=== PATIENT | female | born 1955 | race Caucasian/White ===

== ENCOUNTER → 2016-11-18 | Outpatient (CLI) | payer OTHER ==
[~2016-11-18] MED LIST: 'PARAFON FORTE500 M1 PO; ALBUTEROL; ALBUTEROL0.09 MG/A2 IH; AMBIEN5 MG PO; AMOXIL500 MG PO; ASPIR 8181 MG PO; ASPIRIN81 M1 PO; ATARAX25 MG PO; ATIVAN0.5 MG PO; ATORVASTATIN CA20 M1 PO; BACTRIM DS 8001 TA1 PO; BEVACIZUMAB 25 MG/ML IV; BIAXIN500 MG PO; CELEXA10 MG PO; CLARITIN10 MG PO; CLINDAMYCIN HC300 MG PO; DAYPRO600 M1 PO; EES400 MG PO; ELIMITE 5%60 GM PO; FLEXERIL10 MG PO; FLEXERIL5 MG PO; FLONASE0.05 MG/AC NS; FLOVENT; FUROSEMIDE20 MG PO; GABAPENTIN300 MG PO; GENTAK3 MG/GM OP; HUMULIN R100 U/ML SC; HYDROCODONE BIT1 T11 PO; HYDRODIURIL25 MG PO; INVOKANA 100 MG PO; INVOKANA300 M1 PO; JANUVIA25 MG PO; LEVOFLOXACIN500 MG PO; LIDEX0.05% T; LOMOTIL 0.025 M1 TA1 PO; LOMOTIL 0.025 M1 TAB PO; LOPRESSOR25 MG PO; LOVAZA1 GM PO; LYRICA100 MG PO; MEDROL DOSEPAK4 MG PO; METFORMIN HCL500 MG PO; METFORMIN1000 MG PO; METOPROLOL SR25 MG PO; MOBIC7.5 MG PO; MORPHINE SULFAT15 M1 PO; MOTRIN800 MG PO; MULTIPLE VITAMI1 T25 PO; MULTIVITAMIN FO1 CAP PO; NAPROSYN500 MG PO; NEURONTIN100 MG PO; NEURONTIN300 MG PO; NEXIUM40 MG PO; NORCO 5-325 TA1 EACH PO; NOVOLIN 70/30 SC; NOVOLOG10 ML IV; NOVOLOG10 ML PO; OMNICEF300 MG PO; PERCOCET 325 MG1 TA2 PO; PHENERGAN W/DM120 ML PO; PHENERGAN25 M1 PO; POTASSIUM CL ER PO; PREDNICOT10 MG PO; PREDNICOT20 MG PO; PREDNISONE10 MG PO; PRILOSEC20 M1 PO; PRILOSEC40 MG PO; PROAIR HFA0.09 MG/AC IH; PROAIR HFA0.09 MG/AC INH; PYRIDIUM200 M1 PO; RESTASIS0.05% OP; ROBITUSSIN AC 110 ML PO; SUDAFED30 MG PO; TRAMADOL HCL50 MG PO; TRILIPIX45 MG PO; VENTOLIN H0.09 MG/AC INH; VIBRAMYCIN100 MG PO; VICODIN 5-3001 EACH PO; VICODIN 5/500 505 MG PO; VITAMIN D33000 UNIT PO; ZANTAC 150150 MG PO; ZETIA10 MG PO; ZITHROMAX Z PA250 MG PO; ZOFRAN ODT4 MG SL; ZOFRAN ODT8 MG PO; ZOFRAN4 MG PO; Zofran4 MG PO; [UNRECOGNIZED DRUG - OTHER] PO
== END | disposition home or self-care (01) ==
LOC: MAMMO 11-11 10:00
DX: N63 Unspecified lump in breast (principal)

== ENCOUNTER → 2017-03-31 | Outpatient (CLI) | payer OTHER ==
[~2017-03-31] MED LIST changes: +LIDEX 0.05% CRE15 GM T
== END | disposition home or self-care (01) ==
LOC: D 10:15
DX: E11.9 Type 2 diabetes mellitus without complications (principal)

== ENCOUNTER 2017-05-21 14:35 | Emergency (ER) | payer OTHER ==
[~2017-05-21] VITALS: Wt 87.1 kg
[2017-05-21 15:09] VITALS: BP 132/63
[2017-05-21 15:31] LABS: BASO % 0.4 % (0.0-1.0); EOS % 0.4 % (1.0-4.0); HEMATOCRIT 41.7 % (37.0-47.0); HEMOGLOBIN 14.4 g/dl (12.0-16.0); IG # 0.1 10*3/uL (0.0-0.1); LYMPH # 1.3 10*3/uL (1.3-4.4); LYMPH % 12.1 % (27.0-41.0); MEAN CELL VOLUME 84.8 fl (81.0-99.0); MEAN CORPUSCULAR HGB 29.3 pg (27.0-31.0); MEAN CORPUSCULAR HGB CONC 34.5 g/dl (33.0-37.0); MEAN PLATELET VOLUME 9.6 fl (9.6-12.3); MONO # 1.2 10*3/uL (0.1-1.0); NEUT % 75.6 % (47.0-73.0); PLATELET COUNT AUTOMATED 261 10*3/uL (130-400); RED BLOOD COUNT 4.92 10*6/uL (4.10-5.10); RED CELL DISTRI WIDTH 13.1 % (0-14.5); WHITE BLOOD COUNT 10.6 10*3/uL (4.8-10.8)
[2017-05-21 15:48] LABS: ALBUMIN 3.4 gm/dl (3.1-4.5); BILIRUBIN, TOTAL 0.7 mg/dl (0.2-1.0); BUN 12 mg/dl (7-24); CARBON DIOXIDE 25 mmol/L (21-32); CHLORIDE 96 mmol/L (98-107); EST GLOM FILT AFRICAN AMERICAN > 60 ml/min; GLUCOSE 205 mg/dL (65-99); POTASSIUM 3.5 mmol/L (3.5-5.1); SGOT/AST 9 IU/L (3-35); SGPT/ALT 15 U/L (12-78); SODIUM 132 mmol/L (136-145); TOTAL PROTEIN 7.6 gm/dL (6.4-8.2)
[2017-05-21 15:49] LABS: ALKALINE PHOSPHATASE 84 U/L (45-117)
[2017-05-21 15:58] LABS: BILIRUBIN 1+ (NEGATIVE); BLOOD TRACE-INTACT (NEGATIVE); CLARITY SL CLOUDY (CLEAR); COLOR YELLOW (YELLOW); GLUCOSE 1+ (NEGATIVE); KETONE TRACE (NEGATIVE); LEUKO ESTERASE NEGATIVE (NEGATIVE); NITRITE POSITIVE (NEGATIVE); PROTEIN 2+ (NEGATIVE); SPECIFIC GRAVITY 1.025 (1.005-1.030)
[2017-05-21 16:06] LABS: URINE REFLEX COMMENT YES (NO)
[2017-05-21 16:07] LABS: MUCOUS 1+
[2017-05-21 16:08] LABS: BACTERIA 3+
[2017-05-21] MEDS ORDERED: LEVOFLOXACIN500 MG PO (16:39)
[2017-05-21] MEDS ORDERED: NAPROSYN500 MG PO (16:39)
== END 2017-05-21 16:51 | disposition home or self-care (01) ==
LOC: ED 14:35
PROVIDERS: Emergency Medicine
DX: J18.1 Lobar pneumonia, unspecified organism (principal); R09.1 Pleurisy; F17.200 Nicotine dependence, unspecified, uncomplicated; Z79.82 Long term (current) use of aspirin; Z79.899 Other long term (current) drug therapy; Z88.0 Allergy status to penicillin; Z88.6 Allergy status to analgesic agent; Z91.012 Allergy to eggs

== ENCOUNTER 2017-07-19 19:27 | Emergency (ER) | payer OTHER ==
[~2017-07-19] VITALS: Ht 165.1 cm; Wt 81.6 kg
[2017-07-19 20:01] VITALS: BP 110/78
[2017-07-19] MEDS ORDERED: LEVOFLOXACIN500 MG PO (22:08)
[2017-07-19] MEDS ORDERED: MEDROL DOSEPAK4 MG PO (22:13)
== END 2017-07-19 22:23 | disposition home or self-care (01) ==
LOC: ED 19:27
DX: H65.93 Unspecified nonsuppurative otitis media, bilateral (principal); J01.00 Acute maxillary sinusitis, unspecified; F17.200 Nicotine dependence, unspecified, uncomplicated; Z88.0 Allergy status to penicillin; Z88.6 Allergy status to analgesic agent; Z91.012 Allergy to eggs; Z79.82 Long term (current) use of aspirin; Z79.899 Other long term (current) drug therapy

== ENCOUNTER 2017-09-05 17:17 | Emergency (ER) | payer OTHER ==
[2017-09-05 17:22] VITALS: BP 120/55
[2017-09-05 17:40] LABS: BASO # 0.1 10*3/uL (0.0-0.1); BASO % 0.6 % (0.0-1.0); EOS # 0.2 10*3/uL (0.0-0.4); EOS % 2.2 % (1.0-4.0); HEMATOCRIT 42.1 % (37.0-47.0); HEMOGLOBIN 14.4 g/dl (12.0-16.0); LYMPH # 2.9 10*3/uL (1.3-4.4); LYMPH % 30.2 % (27.0-41.0); MEAN CELL VOLUME 84.4 fl (81.0-99.0); MEAN CORPUSCULAR HGB 28.9 pg (27.0-31.0); MEAN CORPUSCULAR HGB CONC 34.2 g/dl (33.0-37.0); MEAN PLATELET VOLUME 9.7 fl (9.6-12.3); MONO # 0.7 10*3/uL (0.1-1.0); MONO % 7.5 % (3.0-9.0); NEUT # 5.6 10*3/uL (2.3-7.9); PLATELET COUNT AUTOMATED 295 10*3/uL (130-400); RED BLOOD COUNT 4.99 10*6/uL (4.10-5.10); WHITE BLOOD COUNT 9.5 10*3/uL (4.8-10.8)
[2017-09-05 18:00] LABS: ALBUMIN 3.5 gm/dl (3.1-4.5); ALKALINE PHOSPHATASE 112 U/L (45-117); BUN 16 mg/dl (7-24); CHLORIDE 99 mmol/L (98-107); POTASSIUM 3.8 mmol/L (3.5-5.1); SGOT/AST 14 IU/L (3-35); SGPT/ALT 18 U/L (12-78); SODIUM 135 mmol/L (136-145); TOTAL PROTEIN 7.5 gm/dL (6.4-8.2)
[2017-09-05] MEDS ORDERED: NOVOLOG100 UNIT/1 SQ (18:33)
[2017-09-05] MEDS ORDERED: SEPTDS PO (19:02)
== END 2017-09-05 19:06 | disposition home or self-care (01) ==
LOC: ED 17:17
PROVIDERS: Registered Nurse
DX: J06.9 Acute upper respiratory infection, unspecified (principal); R73.9 Hyperglycemia, unspecified; F17.200 Nicotine dependence, unspecified, uncomplicated; Z88.0 Allergy status to penicillin; Z88.6 Allergy status to analgesic agent; Z91.012 Allergy to eggs; Z79.82 Long term (current) use of aspirin; Z79.899 Other long term (current) drug therapy

== ENCOUNTER 2017-11-12 13:27 | Emergency (ER) | payer OTHER ==
[~2017-11-12] VITALS: Ht 165.1 cm; Wt 86.2 kg
[~2017-11-12 13:27] MED LIST changes: +NOVOLOG100 UNIT/1 SQ; +SEPTDS PO
[2017-11-12 13:31] VITALS: BP 106/71
[2017-11-12] MEDS ORDERED: Bactroban Oint22 GM T (13:54)
== END 2017-11-12 14:27 | disposition home or self-care (01) ==
LOC: ED 13:27
DX: J34.89 Other specified disorders of nose and nasal sinuses (principal); F17.200 Nicotine dependence, unspecified, uncomplicated; Z90.710 Acquired absence of both cervix and uterus; Z98.890 Other specified postprocedural states; Z90.89 Acquired absence of other organs; Z79.82 Long term (current) use of aspirin; Z79.899 Other long term (current) drug therapy; Z88.0 Allergy status to penicillin; Z88.6 Allergy status to analgesic agent; Z91.012 Allergy to eggs

== ENCOUNTER → 2018-03-08 | Outpatient (CLI) | payer OTHER, MEDICAID ==
[~2018-03-08] MED LIST changes: +Bactroban Oint22 GM T
== END | disposition home or self-care (01) ==
LOC: MAMMO 02-24 13:30
DX: N63.20 Unspecified lump in the left breast, unspecified quadrant (principal); R92.8 Other abnormal and inconclusive findings on diagnostic imaging of breast

== ENCOUNTER 2018-03-13 10:34 | Emergency (ER) | payer OTHER, MEDICAID ==
[~2018-03-13] VITALS: Wt 74.8 kg
[2018-03-13] MEDS ORDERED: SEPTDS PO (10:55)
[2018-03-13] MEDS ORDERED: PYRIDIUM100 MG PO (10:55)
[2018-03-13 11:04] LABS: BILIRUBIN NEGATIVE (NEGATIVE); BLOOD 3+ (NEGATIVE); CLARITY SL CLOUDY (CLEAR); COLOR YELLOW (YELLOW); GLUCOSE NEGATIVE (NEGATIVE); KETONE NEGATIVE (NEGATIVE); LEUKO ESTERASE 3+ (NEGATIVE); NITRITE NEGATIVE (NEGATIVE); PH 8.5 (5.0-9.0); UROBILINOGEN 0.2 E.U./dl (0.2-1.0)
[2018-03-13 11:19] LABS: BACTERIA 1+; RBC 21-30 rbc/hpf (0-2); WBC 21-30 wbc/hpf (0-5)
== END 2018-03-13 11:45 | disposition home or self-care (01) ==
LOC: ED 10:34
PROVIDERS: Physician Assistant
DX: N39.0 Urinary tract infection, site not specified (principal); R31.9 Hematuria, unspecified; F17.200 Nicotine dependence, unspecified, uncomplicated; E11.9 Type 2 diabetes mellitus without complications; Z79.899 Other long term (current) drug therapy; Z79.82 Long term (current) use of aspirin; Z88.0 Allergy status to penicillin; Z88.6 Allergy status to analgesic agent; Z91.012 Allergy to eggs; Z98.890 Other specified postprocedural states; Z90.710 Acquired absence of both cervix and uterus; Z90.89 Acquired absence of other organs

== ENCOUNTER → 2018-08-04 | Outpatient (CLI) | payer MEDICARE ==
[~2018-08-04] MED LIST changes: +BYDUREON P2 MG/0.65 SQ; +HUMALOG100 UNIT/2 SQ; +PERCOCET 5-3251 EACH PO; +PYRIDIUM100 MG PO; +TOUJEO SOL300 UNIT/1 SQ; +VITAMIN D-32000 UNIT PO
== END | disposition home or self-care (01) ==
LOC: MRI 03:25
DX: M48.061 Spinal stenosis, lumbar region without neurogenic claudication (principal); M47.897 Other spondylosis, lumbosacral region; M51.26 Other intervertebral disc displacement, lumbar region; M12.88 Other specific arthropathies, not elsewhere classified, other specified site; R10.31 Right lower quadrant pain; R10.32 Left lower quadrant pain

== ENCOUNTER → 2018-10-06 | Outpatient (CLI) | payer OTHER | END | disposition home or self-care (01) | LOC: MRI 02:33 | DX: R25.1 Tremor, unspecified (principal); J32.9 Chronic sinusitis, unspecified ==

== ENCOUNTER 2019-01-08 18:24 | Emergency (ER) | payer OTHER ==
[~2019-01-08] VITALS: Ht 165.1 cm; Wt 90.7 kg
[2019-01-08 18:26] VITALS: BP 139/58
[2019-01-08] MEDS ORDERED: ROBAXIN500 M1 PO (20:20)
== END 2019-01-08 20:24 | disposition home or self-care (01) ==
LOC: ED 18:24
DX: M54.5 Low back pain (principal); M62.830 Muscle spasm of back; M25.551 Pain in right hip; R22.2 Localized swelling, mass and lump, trunk; M62.89 Other specified disorders of muscle; R10.9 Unspecified abdominal pain; E11.9 Type 2 diabetes mellitus without complications; F17.200 Nicotine dependence, unspecified, uncomplicated; Z88.0 Allergy status to penicillin; Z91.012 Allergy to eggs; Z88.6 Allergy status to analgesic agent; Z79.899 Other long term (current) drug therapy; Z79.82 Long term (current) use of aspirin; Z79.4 Long term (current) use of insulin; W18.40XA Slipping, tripping and stumbling without falling, unspecified, initial encounter; Y93.01 Activity, walking, marching and hiking; Y92.096 Garden or yard of other non-institutional residence as the place of occurrence of the external cause; Y99.8 Other external cause status

== ENCOUNTER 2019-02-13 08:25 | Emergency (ER) | payer OTHER ==
[~2019-02-13] VITALS: Ht 165.1 cm; Wt 90.7 kg
[~2019-02-13 08:25] MED LIST changes: +ROBAXIN500 M1 PO
[2019-02-13 09:05] LABS: BILIRUBIN NEGATIVE (NEGATIVE); BLOOD 3+ (NEGATIVE); CLARITY TURBID (CLEAR); COLOR RED (YELLOW); GLUCOSE NEGATIVE (NEGATIVE); KETONE TRACE (NEGATIVE); NITRITE POSITIVE (NEGATIVE); SPECIFIC GRAVITY >= 1.030 (1.005-1.030)
[2019-02-13 09:07] LABS: LEUKO ESTERASE TRACE (NEGATIVE)
[2019-02-13 09:11] LABS: RBC TNTC rbc/hpf (0-2); WBC TNTC wbc/hpf (0-5)
[2019-02-13 09:17] LABS: BASO # 0.1 10*3/uL (0.0-0.1); BASO % 0.5 % (0.0-1.0); EOS # 0.2 10*3/uL (0.0-0.4); EOS % 1.6 % (1.0-4.0); HEMATOCRIT 46.4 % (37.0-47.0); HEMOGLOBIN 15.7 g/dl (12.0-16.0); LYMPH # 1.7 10*3/uL (1.3-4.4); LYMPH % 15.6 % (27.0-41.0); MEAN CELL VOLUME 85.1 fl (81.0-99.0); MEAN CORPUSCULAR HGB 28.8 pg (27.0-31.0); MEAN CORPUSCULAR HGB CONC 33.8 g/dl (33.0-37.0); MONO # 0.8 10*3/uL (0.1-1.0); MONO % 6.9 % (3.0-9.0); NEUT # 8.2 10*3/uL (2.3-7.9); NEUT % 75.1 % (47.0-73.0); PLATELET COUNT AUTOMATED 283 10*3/uL (130-400); RED BLOOD COUNT 5.45 10*6/uL (4.10-5.10); WHITE BLOOD COUNT 10.9 10*3/uL (4.8-10.8)
[2019-02-13 09:29] LABS: ACT PARTIAL THROMBO TIME 23.9 SECONDS (20.8-31.5)
[2019-02-13 09:52] LABS: ALBUMIN 3.6 gm/dl (3.1-4.5); ALKALINE PHOSPHATASE 82 U/L (45-117); BUN 14 mg/dl (7-24); CHLORIDE 103 mmol/L (98-107); CREATININE 0.75 mg/dL (0.55-1.02); POTASSIUM 3.4 mmol/L (3.5-5.1); SGOT/AST 10 IU/L (3-35); SGPT/ALT 17 U/L (12-78); SODIUM 137 mmol/L (136-145); TOTAL PROTEIN 7.2 gm/dL (6.4-8.2)
[2019-02-13] MEDS ORDERED: PYRIDIUM200 M1 PO (10:52)
[2019-02-13] MEDS ORDERED: MACROBID100 M1 PO (10:52)
[2019-02-13 11:08] VITALS: BP 148/96
== END 2019-02-13 10:59 | disposition home or self-care (01) ==
LOC: ED 08:25
PROVIDERS: Emergency Medicine
DX: N39.0 Urinary tract infection, site not specified (principal); R31.0 Gross hematuria; G89.29 Other chronic pain; I10 Essential (primary) hypertension; E66.9 Obesity, unspecified; F17.210 Nicotine dependence, cigarettes, uncomplicated; Z88.0 Allergy status to penicillin; Z91.012 Allergy to eggs; Z88.6 Allergy status to analgesic agent; Z88.8 Allergy status to other drugs, medicaments and biological substances; Z79.899 Other long term (current) drug therapy; Z79.82 Long term (current) use of aspirin; Z79.4 Long term (current) use of insulin; Z90.710 Acquired absence of both cervix and uterus; Z68.30 Body mass index [BMI] 30.0-30.9, adult

== ENCOUNTER → 2019-04-13 | Outpatient (CLI) | payer OTHER ==
[~2019-04-13] MED LIST changes: +MACROBID100 M1 PO
[2019-04-13 14:43] LABS: BUN 10 mg/dl (7-24); CHLORIDE 104 mmol/L (98-107); CREATININE 0.69 mg/dL (0.55-1.02); POTASSIUM 3.4 mmol/L (3.5-5.1); SODIUM 140 mmol/L (136-145)
[2019-04-14 09:05] LABS: CREATININE,URINE 30.5 mg/dL (Not Estab.); MICRO ALBUMIN/CRE RATIO <9.8 (0.0-30.0)
== END | disposition home or self-care (01) ==
LOC: LAB 13:38
PROVIDERS: Internal Medicine Endocrinology, Diabetes & Metabolism
DX: E11.8 Type 2 diabetes mellitus with unspecified complications (principal); E55.9 Vitamin D deficiency, unspecified; Z79.4 Long term (current) use of insulin

== ENCOUNTER 2019-09-05 10:37 | Emergency (ER) | payer OTHER ==
[~2019-09-05] VITALS: Ht 162.5 cm; Wt 88.0 kg
[2019-09-05 10:40] VITALS: BP 125/43
== END 2019-09-05 12:53 | disposition home or self-care (01) ==
LOC: ED 10:37
DX: S90.121A Contusion of right lesser toe(s) without damage to nail, initial encounter (principal); R22.2 Localized swelling, mass and lump, trunk; M54.2 Cervicalgia; G62.9 Polyneuropathy, unspecified; F17.200 Nicotine dependence, unspecified, uncomplicated; Z88.0 Allergy status to penicillin; Z91.012 Allergy to eggs; Z88.8 Allergy status to other drugs, medicaments and biological substances; Z79.899 Other long term (current) drug therapy; Z79.2 Long term (current) use of antibiotics; Z79.82 Long term (current) use of aspirin; W18.30XA Fall on same level, unspecified, initial encounter; Y93.89 Activity, other specified; Y92.091 Bathroom in other non-institutional residence as the place of occurrence of the external cause; Y99.8 Other external cause status

== ENCOUNTER 2019-12-24 22:24 | Inpatient (IN) | payer OTHER ==
[~2019-12-24] VITALS: Ht 165.1 cm; Wt 82.7 kg
[2019-12-24 22:31] VITALS: BP 151/63
[2019-12-24 23:39] VITALS: BP 141/50
[2019-12-24 23:56] LABS: BASO # 0.1 10*3/uL (0.0-0.1); BASO % 0.4 % (0.0-1.0); EOS # 0.1 10*3/uL (0.0-0.4); EOS % 0.4 % (1.0-4.0); HEMATOCRIT 49.1 % (37.0-47.0); HEMOGLOBIN 17.1 g/dl (12.0-16.0); LYMPH # 1.5 10*3/uL (1.3-4.4); LYMPH % 8.9 % (27.0-41.0); MEAN CORPUSCULAR HGB 30.6 pg (27.0-31.0); MEAN CORPUSCULAR HGB CONC 34.8 g/dl (33.0-37.0); MEAN PLATELET VOLUME 10.2 fl (9.6-12.3); MONO # 0.8 10*3/uL (0.1-1.0); MONO % 4.7 % (3.0-9.0); NEUT # 13.9 10*3/uL (2.3-7.9); NEUT % 85.1 % (47.0-73.0); PLATELET COUNT AUTOMATED 288 10*3/uL (130-400); RED BLOOD COUNT 5.58 10*6/uL (4.10-5.10); RED CELL DISTRI WIDTH 13.8 % (0-14.5); WHITE BLOOD COUNT 16.3 10*3/uL (4.8-10.8)
[2019-12-25] VITALS (9 sets, daily range): BP systolic 95–147; BP diastolic 47–72
[2019-12-25 00:12] LABS: ALBUMIN 3.8 gm/dl (3.1-4.5); ALKALINE PHOSPHATASE 75 U/L (45-117); BUN 14 mg/dl (7-24); CHLORIDE 105 mmol/L (98-107); CREATININE 0.68 mg/dL (0.55-1.02); LIPASE 113 U/L (73-393); POTASSIUM 3.3 mmol/L (3.5-5.1); SGOT/AST 12 IU/L (3-35); SGPT/ALT 20 U/L (12-78); SODIUM 140 mmol/L (136-145); TOTAL PROTEIN 7.2 gm/dL (6.4-8.2)
[2019-12-25 00:46] LABS: BILIRUBIN NEGATIVE (NEGATIVE); BLOOD NEGATIVE (NEGATIVE); CLARITY SL CLOUDY (CLEAR); COLOR YELLOW (YELLOW); GLUCOSE NEGATIVE (NEGATIVE); KETONE NEGATIVE (NEGATIVE); LEUKO ESTERASE NEGATIVE (NEGATIVE); NITRITE NEGATIVE (NEGATIVE); PH 7.5 (5.0-9.0); SPECIFIC GRAVITY 1.015 (1.005-1.030); UROBILINOGEN 0.2 E.U./dl (0.2-1.0)
[2019-12-25 00:59] LABS: EPITHELIAL CELLS 30-35
[2019-12-25 01:00] LABS: BACTERIA 1+
[2019-12-25] MEDS ORDERED: LYRICA100 M1 PO (09:37)
[2019-12-25] MEDS ORDERED: BASAG SOL SC (09:38)
[2019-12-25] MEDS ORDERED: TOPAMAX25 M3 PO (09:41)
[2019-12-25] MEDS ORDERED: LIPITOR40 MG PO (09:42)
[2019-12-25] MEDS ORDERED: Clopidogrel75 MG PO (09:44)
[2019-12-25] MEDS ORDERED: PRIMIDONE250 MG PO (09:51)
[2019-12-26 07:11] LABS: BASO % 0.5 % (0.0-1.0); EOS # 0.2 10*3/uL (0.0-0.4); HEMATOCRIT 43.4 % (37.0-47.0); HEMOGLOBIN 14.5 g/dl (12.0-16.0); LYMPH # 2.5 10*3/uL (1.3-4.4); LYMPH % 32.6 % (27.0-41.0); MEAN CELL VOLUME 89.3 fl (81.0-99.0); MEAN CORPUSCULAR HGB 29.8 pg (27.0-31.0); MEAN CORPUSCULAR HGB CONC 33.4 g/dl (33.0-37.0); MEAN PLATELET VOLUME 10.3 fl (9.6-12.3); MONO # 0.6 10*3/uL (0.1-1.0); MONO % 8.2 % (3.0-9.0); NEUT # 4.2 10*3/uL (2.3-7.9); NEUT % 55.4 % (47.0-73.0); PLATELET COUNT AUTOMATED 239 10*3/uL (130-400); RED BLOOD COUNT 4.86 10*6/uL (4.10-5.10); RED CELL DISTRI WIDTH 14.1 % (0-14.5); WHITE BLOOD COUNT 7.7 10*3/uL (4.8-10.8)
[2019-12-26 07:28] LABS: BUN 16 mg/dl (7-24); CHLORIDE 112 mmol/L (98-107); CREATININE 0.49 mg/dL (0.55-1.02); POTASSIUM 3.2 mmol/L (3.5-5.1); SODIUM 145 mmol/L (136-145)
[2019-12-26 08:00] VITALS: BP 139/58
[2019-12-26 12:00] VITALS: BP 138/45
[2019-12-26] MEDS ORDERED: K-TAB20 MEQ PO (14:16)
== END 2019-12-26 15:07 | disposition home or self-care (01) | DRG 392 ==
LOC: ED 22:24 → 5E 12-25 03:07 → EDHOLD 12-25 03:07 → 5E 12-25 03:30
PROVIDERS: Emergency Medicine; Internal Medicine; ADMIT Emergency Medicine
PROC: 0D9670Z Drainage of Stomach with Drainage Device, Via Natural or Artificial Opening (ICD-10-PCS; principal; 2019-12-24)
DX: K52.9 Noninfective gastroenteritis and colitis, unspecified (principal); K56.609 Unspecified intestinal obstruction, unspecified as to partial versus complete obstruction; E87.6 Hypokalemia; E11.65 Type 2 diabetes mellitus with hyperglycemia; E11.40 Type 2 diabetes mellitus with diabetic neuropathy, unspecified; I10 Essential (primary) hypertension; E66.9 Obesity, unspecified; G89.29 Other chronic pain; E87.8 Other disorders of electrolyte and fluid balance, not elsewhere classified; M54.9 Dorsalgia, unspecified; Z68.30 Body mass index [BMI] 30.0-30.9, adult; Z88.0 Allergy status to penicillin; Z88.8 Allergy status to other drugs, medicaments and biological substances; Z88.6 Allergy status to analgesic agent; Z91.012 Allergy to eggs; Z79.899 Other long term (current) drug therapy; Z79.4 Long term (current) use of insulin; Z79.82 Long term (current) use of aspirin; Z90.710 Acquired absence of both cervix and uterus; Z83.3 Family history of diabetes mellitus; Z82.49 Family history of ischemic heart disease and other diseases of the circulatory system; Z80.9 Family history of malignant neoplasm, unspecified; D72.829 Elevated white blood cell count, unspecified

== ENCOUNTER → 2020-11-13 | Outpatient (CLI) | payer OTHER ==
[~2020-11-13] MED LIST changes: +BASAG SOL SC; +Clopidogrel75 MG PO; +K-TAB20 MEQ PO; +LIPITOR40 MG PO; +LYRICA100 M1 PO; +PRIMIDONE250 MG PO; +TOPAMAX25 M3 PO
[2020-11-13 09:02] LABS: HEMATOCRIT 44.9 % (37.0-47.0); MEAN CELL VOLUME 86.2 fl (81.0-99.0); MEAN CORPUSCULAR HGB CONC 33.6 g/dl (33.0-37.0); MEAN PLATELET VOLUME 10.3 fl (9.6-12.3); RED BLOOD COUNT 5.21 10*6/uL (4.10-5.10); RED CELL DISTRI WIDTH 13.1 % (0-14.5); WHITE BLOOD COUNT 7.6 10*3/uL (4.8-10.8)
[2020-11-13 09:31] LABS: ALBUMIN 3.7 gm/dl (3.1-4.5); ALKALINE PHOSPHATASE 73 U/L (45-117); BUN 15 mg/dl (7-24); CHLORIDE 109 mmol/L (98-107); CHOLESTEROL 122 mg/dL (<200); CREATININE 0.85 mg/dL (0.55-1.02); HDL CHOLESTEROL 34 mg/dl (40-60); LDL CHOLESTEROL 53 mg/dL (9-159); POTASSIUM 3.6 mmol/L (3.5-5.1); SGOT/AST 12 IU/L (3-35); SGPT/ALT 19 U/L (12-78); SODIUM 141 mmol/L (136-145); TRIGLYCERIDES 173 mg/dl (<150); VLDL CHOLESTEROL 35 mg/dL (6-40)
[2020-11-14 12:10] LABS: CREATININE,URINE 48.7 mg/dL (Not Estab.); MICRO ALBUMIN/CRE RATIO <6 (0-29)
== END | disposition home or self-care (01) ==
LOC: LAB 08:31
PROVIDERS: Internal Medicine Endocrinology, Diabetes & Metabolism; ATTEND Physician Assistant
DX: E11.8 Type 2 diabetes mellitus with unspecified complications (principal); E55.9 Vitamin D deficiency, unspecified; E78.5 Hyperlipidemia, unspecified; E78.2 Mixed hyperlipidemia

== ENCOUNTER → 2021-01-01 | Outpatient (CLI) | payer OTHER | END | disposition home or self-care (01) | LOC: CARD 09:52 | PROVIDERS: ATTEND Family Medicine | DX: R01.1 Cardiac murmur, unspecified (principal); R55 Syncope and collapse; Z91.81 History of falling ==

== ENCOUNTER → 2021-02-06 | Outpatient (CLI) | payer OTHER | END | disposition home or self-care (01) | LOC: MAMMO 12:50 | PROVIDERS: ATTEND Family Medicine | DX: N63.0 Unspecified lump in unspecified breast (principal); N64.59 Other signs and symptoms in breast ==

== ENCOUNTER → 2021-05-15 | Outpatient (CLI) | payer OTHER | END | disposition home or self-care (01) | LOC: US 15:04 | PROVIDERS: ATTEND Family Medicine | DX: R60.0 Localized edema (principal) ==

== ENCOUNTER → 2022-09-10 | Outpatient (CLI) | payer OTHER | END | disposition home or self-care (01) | LOC: RAD 15:59 | PROVIDERS: ATTEND Family Medicine | DX: M47.816 Spondylosis without myelopathy or radiculopathy, lumbar region (principal); M25.78 Osteophyte, vertebrae; M43.8X6 Other specified deforming dorsopathies, lumbar region; I70.0 Atherosclerosis of aorta; M25.711 Osteophyte, right shoulder; M19.011 Primary osteoarthritis, right shoulder; M19.071 Primary osteoarthritis, right ankle and foot; M77.31 Calcaneal spur, right foot; M25.774 Osteophyte, right foot ==

== ENCOUNTER 2022-09-21 16:27 | Emergency (ER) | payer OTHER ==
[~2022-09-21] VITALS: Ht 165.1 cm; Wt 78.9 kg
[2022-09-21 16:51] VITALS: BP 153/60
[2022-09-21 17:14] LABS: BASO # 0.1 10*3/uL (0.0-0.1); BASO % 0.7 % (0.0-1.0); EOS # 0.2 10*3/uL (0.0-0.4); EOS % 2.3 % (1.0-4.0); HEMATOCRIT 47.7 % (37.0-47.0); LYMPH # 2.8 10*3/uL (1.3-4.4); LYMPH % 26.6 % (27.0-41.0); MEAN CELL VOLUME 86.7 fl (81.0-99.0); MEAN CORPUSCULAR HGB 28.9 pg (27.0-31.0); MEAN CORPUSCULAR HGB CONC 33.3 g/dl (33.0-37.0); MEAN PLATELET VOLUME 9.4 fl (9.6-12.3); MONO # 0.7 10*3/uL (0.1-1.0); MONO % 6.5 % (3.0-9.0); NEUT # 6.7 10*3/uL (2.3-7.9); NEUT % 63.7 % (47.0-73.0); PLATELET COUNT AUTOMATED 303 10*3/uL (130-400); RED CELL DISTRI WIDTH 13.2 % (0-14.5); WHITE BLOOD COUNT 10.5 10*3/uL (4.8-10.8)
[2022-09-21 17:30] LABS: ALKALINE PHOSPHATASE 82 U/L (45-117); BUN 14 mg/dl (7-24); CHLORIDE 103 mmol/L (98-107); CREATININE 0.75 mg/dL (0.55-1.02); POTASSIUM 3.8 mmol/L (3.5-5.1); SGPT/ALT 22 U/L (12-78); SODIUM 140 mmol/L (136-145); TOTAL PROTEIN 7.9 gm/dL (6.4-8.2)
[2022-09-21 17:32] LABS: BILIRUBIN Negative (Negative); BLOOD 3+ (Negative); CLARITY Cloudy (Clear); COLOR Red (Yellow); GLUCOSE Negative (Negative); KETONE Negative (Negative); LEUKO ESTERASE 3+ (Negative); NITRITE Negative (Negative); UROBILINOGEN 0.2 E.U./dl (0.0-1.0)
[2022-09-21 17:56] LABS: RBC TNTC rbc/hpf (0-2)
[2022-09-21] MEDS ORDERED: PYRIDIUM200 M1 PO (18:05)
[2022-09-21] MEDS ORDERED: DIFLUCAN150 MG PO (18:05)
[2022-09-21] MEDS ORDERED: CEPHALEXIN500 M1 PO (18:05)
[2022-09-21] MEDS ORDERED: ONDANSETRON4 MG SL (18:30)
== END 2022-09-21 18:23 | disposition home or self-care (01) ==
LOC: ED 16:27
PROVIDERS: Family Medicine
DX: N39.0 Urinary tract infection, site not specified (principal); Z88.0 Allergy status to penicillin; Z91.012 Allergy to eggs; Z88.8 Allergy status to other drugs, medicaments and biological substances; Z79.899 Other long term (current) drug therapy; Z98.890 Other specified postprocedural states; Z90.710 Acquired absence of both cervix and uterus; Z90.89 Acquired absence of other organs; Z87.891 Personal history of nicotine dependence

== ENCOUNTER 2022-12-27 11:06 | Emergency (ER) | payer OTHER ==
[~2022-12-27] VITALS: Ht 165.1 cm; Wt 87.1 kg
[~2022-12-27 11:06] MED LIST changes: +CEPHALEXIN500 M1 PO; +DIFLUCAN150 MG PO; +ONDANSETRON4 MG SL
[2022-12-27 11:17] VITALS: BP 129/88
[2022-12-27] MEDS ORDERED: OXYCODONE-ACET1 EACH PO (11:32)
[2022-12-27] MEDS ORDERED: BUPROPION XL300 MG PO (11:33)
[2022-12-27] MEDS ORDERED: PREGABALIN150 MG PO (11:33)
[2022-12-27] MEDS ORDERED: POTASSIUM CHLO20 ME3 PO (11:34)
[2022-12-27] MEDS ORDERED: CLOPIDOGREL75 MG PO (11:34)
[2022-12-27] MEDS ORDERED: FENOFIBRATE MIC67 MG PO (11:34)
[2022-12-27] MEDS ORDERED: HYDROCHLOROTHIA25 M1 PO (11:35)
[2022-12-27] MEDS ORDERED: PROVENTIL HFA6.7 GM INH (11:36)
[2022-12-27 12:15] LABS: BASO # 0.1 10*3/uL (0.0-0.1); BASO % 0.9 % (0.0-1.0); EOS # 0.1 10*3/uL (0.0-0.4); EOS % 0.9 % (1.0-4.0); HEMATOCRIT 45.2 % (37.0-47.0); LYMPH # 1.2 10*3/uL (1.3-4.4); LYMPH % 21.9 % (27.0-41.0); MEAN CELL VOLUME 87.4 fl (81.0-99.0); MEAN CORPUSCULAR HGB 29.4 pg (27.0-31.0); MEAN CORPUSCULAR HGB CONC 33.6 g/dl (33.0-37.0); MEAN PLATELET VOLUME 9.9 fl (9.6-12.3); MONO # 0.9 10*3/uL (0.1-1.0); MONO % 16.2 % (3.0-9.0); NEUT # 3.2 10*3/uL (2.3-7.9); NEUT % 59.7 % (47.0-73.0); PLATELET COUNT AUTOMATED 228 10*3/uL (130-400); RED BLOOD COUNT 5.17 10*6/uL (4.10-5.10); RED CELL DISTRI WIDTH 13.9 % (0-14.5); WHITE BLOOD COUNT 5.4 10*3/uL (4.8-10.8)
[2022-12-27 12:32] LABS: ALKALINE PHOSPHATASE 68 U/L (46-116); BUN 8 mg/dl (9-23); CHLORIDE 100 mmol/L (98-107); POTASSIUM 3.8 mmol/L (3.4-5.1); SGPT/ALT 14 U/L (10-49)
== END 2022-12-27 13:02 | disposition home or self-care (01) ==
LOC: ED 11:06
PROVIDERS: Internal Medicine
DX: U07.1 COVID-19 (principal); E11.9 Type 2 diabetes mellitus without complications; K21.9 Gastro-esophageal reflux disease without esophagitis; I10 Essential (primary) hypertension; J45.909 Unspecified asthma, uncomplicated; F41.9 Anxiety disorder, unspecified; F32.A Depression, unspecified; Z91.012 Allergy to eggs; Z88.8 Allergy status to other drugs, medicaments and biological substances; Z88.0 Allergy status to penicillin; Z90.710 Acquired absence of both cervix and uterus; Z96.651 Presence of right artificial knee joint; Z90.89 Acquired absence of other organs; Z98.890 Other specified postprocedural states

== ENCOUNTER 2023-02-16 17:38 | Emergency (ER) | payer OTHER ==
[~2023-02-16] VITALS: Ht 165.1 cm; Wt 86.2 kg
[~2023-02-16 17:38] MED LIST changes: +BUPROPION XL300 MG PO; +CLOPIDOGREL75 MG PO; +FENOFIBRATE MIC67 MG PO; +HYDROCHLOROTHIA25 M1 PO; +OXYCODONE-ACET1 EACH PO; +POTASSIUM CHLO20 ME3 PO; +PREGABALIN150 MG PO; +PROVENTIL HFA6.7 GM INH
[2023-02-16 18:10] VITALS: BP 103/75
[2023-02-16] MEDS ORDERED: PREDNISONE20 M1 PO (20:02)
== END 2023-02-16 20:14 | disposition home or self-care (01) ==
LOC: ED 17:38
DX: M17.11 Unilateral primary osteoarthritis, right knee (principal); Z88.0 Allergy status to penicillin; Z91.012 Allergy to eggs; Z88.8 Allergy status to other drugs, medicaments and biological substances; Z79.899 Other long term (current) drug therapy; Z98.890 Other specified postprocedural states; Z90.710 Acquired absence of both cervix and uterus; Z90.89 Acquired absence of other organs; F17.200 Nicotine dependence, unspecified, uncomplicated

== ENCOUNTER 2023-03-26 13:34 | Emergency (ER) | payer OTHER ==
[~2023-03-26] VITALS: Ht 165.1 cm; Wt 87.1 kg
[~2023-03-26 13:34] MED LIST changes: +PREDNISONE20 M1 PO
[2023-03-26 13:42] VITALS: BP 159/58
[2023-03-26 14:33] LABS: BASO # 0.1 10*3/uL (0.0-0.1); BASO % 0.4 % (0.0-1.0); EOS # 0.1 10*3/uL (0.0-0.4); EOS % 0.9 % (1.0-4.0); HEMATOCRIT 47.8 % (37.0-47.0); LYMPH # 1.4 10*3/uL (1.3-4.4); LYMPH % 12.1 % (27.0-41.0); MEAN CELL VOLUME 86.3 fl (81.0-99.0); MEAN CORPUSCULAR HGB 29.6 pg (27.0-31.0); MEAN CORPUSCULAR HGB CONC 34.3 g/dl (33.0-37.0); MEAN PLATELET VOLUME 9.7 fl (9.6-12.3); MONO # 0.6 10*3/uL (0.1-1.0); MONO % 5.5 % (3.0-9.0); NEUT # 9.4 10*3/uL (2.3-7.9); NEUT % 80.8 % (47.0-73.0); PLATELET COUNT AUTOMATED 266 10*3/uL (130-400); RED BLOOD COUNT 5.54 10*6/uL (4.10-5.10); RED CELL DISTRI WIDTH 13.3 % (0-14.5); WHITE BLOOD COUNT 11.6 10*3/uL (4.8-10.8)
[2023-03-26 14:44] LABS: ALKALINE PHOSPHATASE 76 U/L (46-116); BUN 13 mg/dl (9-23); CHLORIDE 101 mmol/L (98-107); LIPASE 40 U/L (12-53); POTASSIUM 3.9 mmol/L (3.4-5.1); SGPT/ALT 15 U/L (10-49); TOTAL PROTEIN 7.3 gm/dL (6.0-8.0)
[2023-03-26] MEDS ORDERED: METRONIDAZOLE500 M1 PO (16:19)
[2023-03-26] MEDS ORDERED: ONDANSETRON4 MG SL (16:19)
[2023-03-26] MEDS ORDERED: CIPRO500 MG PO (16:19)
== END 2023-03-26 16:43 | disposition home or self-care (01) ==
LOC: ED 13:34
PROVIDERS: Emergency Medicine
DX: K52.9 Noninfective gastroenteritis and colitis, unspecified (principal); E11.9 Type 2 diabetes mellitus without complications; K21.9 Gastro-esophageal reflux disease without esophagitis; I10 Essential (primary) hypertension; J45.909 Unspecified asthma, uncomplicated; F41.9 Anxiety disorder, unspecified; E78.00 Pure hypercholesterolemia, unspecified; F32.A Depression, unspecified; Z88.0 Allergy status to penicillin; Z91.012 Allergy to eggs; Z88.8 Allergy status to other drugs, medicaments and biological substances; Z90.710 Acquired absence of both cervix and uterus; Z90.89 Acquired absence of other organs; Z98.890 Other specified postprocedural states; Z72.0 Tobacco use

== ENCOUNTER 2023-05-27 20:20 | Emergency (ER) | payer OTHER ==
[~2023-05-27] VITALS: Ht 165.1 cm; Wt 86.2 kg
[~2023-05-27 20:20] MED LIST changes: +CIPRO500 MG PO; +METRONIDAZOLE500 M1 PO
[2023-05-27 20:31] VITALS: BP 115/47
[2023-05-27 21:05] LABS: BILIRUBIN Negative (Negative); BLOOD Negative (Negative); CLARITY Clear (Clear); COLOR Yellow (Yellow); GLUCOSE Negative (Negative); KETONE Negative (Negative); LEUKO ESTERASE Negative (Negative); NITRITE Negative (Negative); PH 5.5 (4.5-8.0); UROBILINOGEN 0.2 E.U./dl (0.0-1.0)
[2023-05-27 21:13] LABS: BASO # 0.1 10*3/uL (0.0-0.1); BASO % 0.6 % (0.0-1.0); EOS # 0.2 10*3/uL (0.0-0.4); EOS % 2.5 % (1.0-4.0); HEMATOCRIT 42.9 % (37.0-47.0); LYMPH # 3.1 10*3/uL (1.3-4.4); LYMPH % 34.4 % (27.0-41.0); MEAN CELL VOLUME 86.3 fl (81.0-99.0); MEAN CORPUSCULAR HGB CONC 35.9 g/dl (33.0-37.0); MEAN PLATELET VOLUME 9.9 fl (9.6-12.3); MONO # 0.6 10*3/uL (0.1-1.0); NEUT % 55.2 % (47.0-73.0); PLATELET COUNT AUTOMATED 264 10*3/uL (130-400); RED BLOOD COUNT 4.97 10*6/uL (4.10-5.10); RED CELL DISTRI WIDTH 13.2 % (0-14.5)
[2023-05-27 21:19] LABS: BACTERIA TRACE; RBC 0-2 rbc/hpf (0-2); WBC 0-2 wbc/hpf (0-5)
[2023-05-27 21:35] LABS: ALKALINE PHOSPHATASE 98 U/L (46-116); BUN 12 mg/dl (9-23); CHLORIDE 100 mmol/L (98-107); POTASSIUM 3.9 mmol/L (3.4-5.1); SGPT/ALT 14 U/L (10-49); TOTAL PROTEIN 5.4 gm/dL (6.0-8.0)
== END 2023-05-28 01:50 | disposition home or self-care (01) ==
LOC: ED 20:20
PROVIDERS: Emergency Medicine
DX: E11.649 Type 2 diabetes mellitus with hypoglycemia without coma (principal); R10.9 Unspecified abdominal pain; I10 Essential (primary) hypertension; E87.8 Other disorders of electrolyte and fluid balance, not elsewhere classified; M19.90 Unspecified osteoarthritis, unspecified site; K21.9 Gastro-esophageal reflux disease without esophagitis; J45.909 Unspecified asthma, uncomplicated; F41.9 Anxiety disorder, unspecified; E78.00 Pure hypercholesterolemia, unspecified; F32.A Depression, unspecified; Z90.710 Acquired absence of both cervix and uterus; Z88.0 Allergy status to penicillin; Z88.8 Allergy status to other drugs, medicaments and biological substances; Z91.012 Allergy to eggs; Z90.89 Acquired absence of other organs; Z98.890 Other specified postprocedural states; Z72.0 Tobacco use

== ENCOUNTER → 2023-07-15 | Outpatient (CLI) | payer OTHER | END | disposition home or self-care (01) | LOC: CARD 12:34 | PROVIDERS: ATTEND Student in an Organized Health Care Education/Training Program | DX: R01.1 Cardiac murmur, unspecified (principal) ==

== ENCOUNTER → 2023-10-06 | Outpatient (CLI) | payer OTHER | END | disposition home or self-care (01) | LOC: RAD 12:23 | PROVIDERS: ATTEND Nurse Practitioner Primary Care | DX: J44.1 Chronic obstructive pulmonary disease with (acute) exacerbation (principal) ==

== ENCOUNTER 2023-10-18 12:16 | Emergency (ER) | payer OTHER ==
[~2023-10-18] VITALS: Ht 165.1 cm; Wt 88.3 kg
[2023-10-18 15:02] LABS: BASO # 0.1 10*3/uL (0.0-0.1); BASO % 0.6 % (0.0-1.0); EOS # 0.2 10*3/uL (0.0-0.4); EOS % 2.4 % (1.0-4.0); HEMATOCRIT 46.4 % (37.0-47.0); LYMPH # 2.2 10*3/uL (1.3-4.4); LYMPH % 22.8 % (27.0-41.0); MEAN CORPUSCULAR HGB 28.9 pg (27.0-31.0); MEAN CORPUSCULAR HGB CONC 34.1 g/dl (33.0-37.0); MEAN PLATELET VOLUME 9.5 fl (9.6-12.3); MONO # 0.6 10*3/uL (0.1-1.0); MONO % 6.4 % (3.0-9.0); NEUT # 6.6 10*3/uL (2.3-7.9); NEUT % 67.4 % (47.0-73.0); PLATELET COUNT AUTOMATED 264 10*3/uL (130-400); RED BLOOD COUNT 5.46 10*6/uL (4.10-5.10); RED CELL DISTRI WIDTH 13.5 % (0-14.5); WHITE BLOOD COUNT 9.8 10*3/uL (4.8-10.8)
[2023-10-18 15:13] LABS: ACT PARTIAL THROMBO TIME 27.5 SECONDS (20.0-32.1)
[2023-10-18 15:53] LABS: ALKALINE PHOSPHATASE 88 U/L (46-116); BUN 9 mg/dl (9-23); CHLORIDE 104 mmol/L (98-107); POTASSIUM 3.7 mmol/L (3.4-5.1); SGPT/ALT 15 U/L (5-49); TOTAL PROTEIN 6.9 gm/dL (6.0-8.0)
[2023-10-18 21:02] VITALS: BP 108/66
== END 2023-10-18 21:54 | disposition short-term general hospital (02) ==
LOC: ED 12:16
PROVIDERS: Nurse Practitioner Family
DX: I70.202 Unspecified atherosclerosis of native arteries of extremities, left leg (principal); E11.65 Type 2 diabetes mellitus with hyperglycemia; K21.9 Gastro-esophageal reflux disease without esophagitis; J45.909 Unspecified asthma, uncomplicated; F41.9 Anxiety disorder, unspecified; E78.00 Pure hypercholesterolemia, unspecified; F32.A Depression, unspecified; E87.8 Other disorders of electrolyte and fluid balance, not elsewhere classified; E87.6 Hypokalemia; M19.90 Unspecified osteoarthritis, unspecified site; I10 Essential (primary) hypertension; Z88.0 Allergy status to penicillin; Z91.012 Allergy to eggs; Z88.8 Allergy status to other drugs, medicaments and biological substances; Z90.710 Acquired absence of both cervix and uterus; Z90.89 Acquired absence of other organs; Z98.890 Other specified postprocedural states; Z72.0 Tobacco use

== ENCOUNTER → 2023-11-11 | Outpatient (CLI) | payer OTHER | END | disposition home or self-care (01) | LOC: MRI 01:22 | PROVIDERS: ATTEND Orthopaedic Surgery | DX: S83.232A Complex tear of medial meniscus, current injury, left knee, initial encounter (principal); S72.432A Displaced fracture of medial condyle of left femur, initial encounter for closed fracture; M25.462 Effusion, left knee; M17.12 Unilateral primary osteoarthritis, left knee; M23.92 Unspecified internal derangement of left knee; S86.912A Strain of unspecified muscle(s) and tendon(s) at lower leg level, left leg, initial encounter; X58.XXXA Exposure to other specified factors, initial encounter; Y93.89 Activity, other specified; Y92.89 Other specified places as the place of occurrence of the external cause; Y99.8 Other external cause status ==

== ENCOUNTER → 2023-12-13 | Outpatient (CLI) | payer OTHER ==
[2023-12-13 14:58] LABS: BUN 8 mg/dl (9-23); CHLORIDE 100 mmol/L (98-107); POTASSIUM 3.6 mmol/L (3.4-5.1)
== END | disposition home or self-care (01) ==
LOC: LAB 13:58
PROVIDERS: ATTEND Internal Medicine Endocrinology, Diabetes & Metabolism
DX: E11.8 Type 2 diabetes mellitus with unspecified complications (principal); Z79.4 Long term (current) use of insulin

== ENCOUNTER → 2024-02-25 | Outpatient (CLI) | payer OTHER | END | disposition home or self-care (01) | LOC: LAB 15:55 | PROVIDERS: ATTEND Nurse Practitioner Family | DX: T14.8XXA Other injury of unspecified body region, initial encounter (principal); W57.XXXA Bitten or stung by nonvenomous insect and other nonvenomous arthropods, initial encounter; Y93.89 Activity, other specified; Y92.89 Other specified places as the place of occurrence of the external cause; Y99.8 Other external cause status ==

== ENCOUNTER 2024-04-13 11:31 | Inpatient (IN) | payer OTHER ==
[~2024-04-13] VITALS: Ht 165.1 cm; Wt 87.5 kg
[2024-04-13 11:34] VITALS: BP 113/38
[2024-04-13] MEDS ORDERED: TEMAZEPAM 15 MG CAP PO PRN (16:25)
[2024-04-13] MEDS ORDERED: BISACODYL 5 MG TAB PO PRN (16:25)
[2024-04-13 16:39] VITALS: BP 112/46
[2024-04-13] MEDS ORDERED: POTASSIUM CHLO20 ME3 PO (16:45)
[2024-04-13] MEDS ORDERED: PERCOCET 7.5-31 EACH PO (16:47)
[2024-04-13] MEDS ORDERED: TRULICITY0.75 MG/0. SC (16:47)
[2024-04-13] MEDS ORDERED: LYRICA200 M1 PO (16:48)
[2024-04-13] MEDS ORDERED: LASIX40 MG PO (16:48)
[2024-04-13] MEDS ORDERED: PROTONIX20 MG PO (16:49)
[2024-04-13] MEDS ORDERED: MULTIPLE VITAM1 EAC1 PO (16:50)
[2024-04-13] MEDS ORDERED: VITAMIN D350 MCG PO (16:50)
[2024-04-13] MEDS ORDERED: DULCOLAX5 M1 PO (16:50)
[2024-04-13] MEDS ORDERED: HUMALOG100 UNIT/1 SC (16:50)
[2024-04-13] MEDS ORDERED: HYDROCHLOROTHIA25 M1 PO (16:51)
[2024-04-13 16:55] LABS: BASO # 0.1 10*3/uL (0.0-0.1); BASO % 0.6 % (0.0-1.0); EOS # 0.2 10*3/uL (0.0-0.4); EOS % 1.7 % (1.0-4.0); HEMATOCRIT 46.3 % (37.0-47.0); LYMPH # 2.3 10*3/uL (1.3-4.4); MEAN CORPUSCULAR HGB 29.4 pg (27.0-31.0); MEAN PLATELET VOLUME 9.8 fl (9.6-12.3); MONO # 0.7 10*3/uL (0.1-1.0); MONO % 7.6 % (3.0-9.0); NEUT # 6.1 10*3/uL (2.3-7.9); NEUT % 64.8 % (47.0-73.0); PLATELET COUNT AUTOMATED 280 10*3/uL (130-400); RED CELL DISTRI WIDTH 13.9 % (0-14.5); WHITE BLOOD COUNT 9.4 10*3/uL (4.8-10.8)
[2024-04-13 17:14] LABS: ACT PARTIAL THROMBO TIME 26.8 SECONDS (20.0-32.1)
[2024-04-13 17:22] LABS: ALKALINE PHOSPHATASE 65 U/L (46-116); BUN 10 mg/dl (9-23); CHLORIDE 106 mmol/L (98-107); CPK 143 U/L (34-171); POTASSIUM 3.4 mmol/L (3.4-5.1); SGPT/ALT 16 U/L (5-49); TOTAL PROTEIN 6.6 gm/dL (6.0-8.0)
[2024-04-13 17:25] VITALS: BP 125/57
[2024-04-13 17:31] LABS: ETHYL ALCOHOL < 3.0 mg/dl (<3)
[2024-04-13] MEDS ORDERED: Acetaminophen/Oxycodone Hydr 7.5 MG/325 MG TABLET PO PRN (18:05)
[2024-04-13] MEDS ORDERED: MORPHINE Sulfate 2 MG/ML SYR IV PRN (18:05)
[2024-04-13] MEDS ORDERED: INSULIN PUMP (PT'S PUMP FROM HOME) SC SCH (18:15)
[2024-04-13 20:00] VITALS: BP 113/91
[2024-04-14] VITALS: BP 109/46
[2024-04-14 08:00] VITALS: BP 129/47
[2024-04-14] MEDS ORDERED: PREGABALIN 50 MG CAP PO SCH (10:00)
[2024-04-14] MEDS ORDERED: Pantoprazole Sodium 20 MG TAB PO SCH (10:00)
[2024-04-14] MEDS ORDERED: POTASSIUM CHLORIDE 20 MEQ TAB PO SCH (10:00)
[2024-04-14] MEDS ORDERED: ATORVASTATIN CALCIUM 40 MG TABLET PO SCH (10:00)
[2024-04-14] MEDS ORDERED: FENOFIBRATE 145 MG TAB PO SCH (10:00)
[2024-04-14] MEDS ORDERED: ASPIRIN ENTERIC COATED 81 MG TAB PO SCH (10:00)
[2024-04-14] MEDS ORDERED: Vitamin D 1,000 IU TAB (25 MCG) PO SCH (10:00)
[2024-04-14] MEDS ORDERED: MULTIVITAMIN 1 TAB TAB PO SCH (10:00)
[2024-04-15] MEDS ORDERED: FUROSEMIDE 40 MG TAB PO SCH (10:00)
[2024-04-15] MEDS ORDERED: HYDROCHLOROTHIAZIDE 25 MG TAB PO SCH (10:00)
== END 2024-04-14 12:34 | disposition home or self-care (01) | DRG 554 ==
LOC: ED 11:31 → 4E 15:29 → EDHOLD 15:29 → 4E 16:50
PROVIDERS: Student in an Organized Health Care Education/Training Program; ADMIT Student in an Organized Health Care Education/Training Program; ATTEND Student in an Organized Health Care Education/Training Program
DX: M17.31 Unilateral post-traumatic osteoarthritis, right knee (principal); Z79.4 Long term (current) use of insulin; M48.061 Spinal stenosis, lumbar region without neurogenic claudication; M25.551 Pain in right hip; S09.90XA Unspecified injury of head, initial encounter; E11.65 Type 2 diabetes mellitus with hyperglycemia; I10 Essential (primary) hypertension; W06.XXXA Fall from bed, initial encounter; Y93.89 Activity, other specified; Y92.89 Other specified places as the place of occurrence of the external cause; Y99.8 Other external cause status; Z98.891 History of uterine scar from previous surgery; Z90.49 Acquired absence of other specified parts of digestive tract; Z80.1 Family history of malignant neoplasm of trachea, bronchus and lung; Z82.49 Family history of ischemic heart disease and other diseases of the circulatory system; Z88.0 Allergy status to penicillin; Z88.1 Allergy status to other antibiotic agents; Z88.6 Allergy status to analgesic agent; Z79.899 Other long term (current) drug therapy; Z90.710 Acquired absence of both cervix and uterus

== ENCOUNTER → 2024-06-27 | Outpatient (CLI) | payer OTHER ==
[~2024-06-27] MED LIST changes: +DULCOLAX5 M1 PO; +HUMALOG100 UNIT/1 SC; +LASIX40 MG PO; +LYRICA200 M1 PO; +MULTIPLE VITAM1 EAC1 PO; +PERCOCET 7.5-31 EACH PO; +PROTONIX20 MG PO; +TRULICITY0.75 MG/0. SC; +VITAMIN D350 MCG PO
== END | disposition home or self-care (01) ==
LOC: CT 02:17
PROVIDERS: ATTEND Internal Medicine Critical Care Medicine
DX: R91.8 Other nonspecific abnormal finding of lung field (principal); I25.10 Atherosclerotic heart disease of native coronary artery without angina pectoris; J45.20 Mild intermittent asthma, uncomplicated; J43.9 Emphysema, unspecified; G47.33 Obstructive sleep apnea (adult) (pediatric); Z87.891 Personal history of nicotine dependence; Z68.32 Body mass index [BMI] 32.0-32.9, adult

== ENCOUNTER → 2024-08-04 | Outpatient (CLI) | payer OTHER | END | disposition home or self-care (01) | LOC: RAD 07-07 03:08 | PROVIDERS: ATTEND Nurse Practitioner Family | DX: Z13.820 Encounter for screening for osteoporosis (principal); M85.88 Other specified disorders of bone density and structure, other site ==

== ENCOUNTER → 2024-08-18 | Outpatient (CLI) | payer OTHER ==
[2024-08-18 08:54] LABS: BASO # 0.1 10*3/uL (0.0-0.1); BASO % 0.8 % (0.0-1.0); EOS # 0.2 10*3/uL (0.0-0.4); EOS % 2.4 % (1.0-4.0); LYMPH % 34.1 % (27.0-41.0); MEAN CORPUSCULAR HGB CONC 34.1 g/dl (33.0-37.0); MEAN PLATELET VOLUME 9.6 fl (9.6-12.3); MONO # 0.7 10*3/uL (0.1-1.0); MONO % 8.5 % (3.0-9.0); NEUT # 4.7 10*3/uL (2.3-7.9); PLATELET COUNT AUTOMATED 277 10*3/uL (130-400); RED BLOOD COUNT 5.23 10*6/uL (4.10-5.10); RED CELL DISTRI WIDTH 13.6 % (0-14.5); WHITE BLOOD COUNT 8.7 10*3/uL (4.8-10.8)
[2024-08-18 09:48] LABS: ALKALINE PHOSPHATASE 85 U/L (46-116); BUN 18 mg/dl (9-23); CHLORIDE 107 mmol/L (98-107); CHOLESTEROL 140 mg/dL (<200); LDL CHOLESTEROL 60 mg/dL (9-159); POTASSIUM 3.7 mmol/L (3.4-5.1); SGPT/ALT 22 U/L (5-49); TOTAL PROTEIN 7.2 gm/dL (6.0-8.0); TRIGLYCERIDES 198 mg/dl (<150)
== END | disposition home or self-care (01) ==
LOC: LAB 08-17 00:19
PROVIDERS: ATTEND Nurse Practitioner Family
DX: I73.9 Peripheral vascular disease, unspecified (principal); E11.42 Type 2 diabetes mellitus with diabetic polyneuropathy; E78.2 Mixed hyperlipidemia; I10 Essential (primary) hypertension; M79.7 Fibromyalgia

== ENCOUNTER 2024-08-27 10:59 | Emergency (ER) | payer OTHER ==
[2024-08-27 11:24] VITALS: BP 121/48
[2024-08-27 11:48] LABS: BASO % 0.5 % (0.0-1.0); EOS # 0.2 10*3/uL (0.0-0.4); EOS % 1.9 % (1.0-4.0); HEMATOCRIT 45.7 % (37.0-47.0); LYMPH # 2.5 10*3/uL (1.3-4.4); LYMPH % 31.9 % (27.0-41.0); MEAN CELL VOLUME 88.4 fl (81.0-99.0); MEAN CORPUSCULAR HGB 29.6 pg (27.0-31.0); MEAN CORPUSCULAR HGB CONC 33.5 g/dl (33.0-37.0); MEAN PLATELET VOLUME 9.5 fl (9.6-12.3); MONO # 0.6 10*3/uL (0.1-1.0); MONO % 7.3 % (3.0-9.0); NEUT # 4.5 10*3/uL (2.3-7.9); NEUT % 58.1 % (47.0-73.0); PLATELET COUNT AUTOMATED 277 10*3/uL (130-400); RED BLOOD COUNT 5.17 10*6/uL (4.10-5.10); RED CELL DISTRI WIDTH 13.3 % (0-14.5); WHITE BLOOD COUNT 7.8 10*3/uL (4.8-10.8)
[2024-08-27] MEDS ORDERED: COLCHICINE 0.6 MG TAB PO ONE ×2 (11:50)
[2024-08-27 12:08] LABS: BUN 14 mg/dl (9-23); CHLORIDE 105 mmol/L (98-107); POTASSIUM 3.7 mmol/L (3.4-5.1)
== END 2024-08-27 12:24 | disposition home or self-care (01) ==
LOC: ED 10:59
PROVIDERS: Nurse Practitioner Family
DX: M10.9 Gout, unspecified (principal); M19.072 Primary osteoarthritis, left ankle and foot; E11.9 Type 2 diabetes mellitus without complications; K21.9 Gastro-esophageal reflux disease without esophagitis; I10 Essential (primary) hypertension; J45.909 Unspecified asthma, uncomplicated; F41.9 Anxiety disorder, unspecified; E78.00 Pure hypercholesterolemia, unspecified; F32.A Depression, unspecified; Z88.0 Allergy status to penicillin; Z88.5 Allergy status to narcotic agent; Z88.8 Allergy status to other drugs, medicaments and biological substances; Z90.710 Acquired absence of both cervix and uterus; Z90.89 Acquired absence of other organs; Z98.890 Other specified postprocedural states; Z95.5 Presence of coronary angioplasty implant and graft; Z72.0 Tobacco use

== ENCOUNTER 2024-09-07 03:43 | Emergency (ER) | payer OTHER ==
[~2024-09-07] VITALS: Ht 165.1 cm; Wt 86.6 kg
[2024-09-07 03:51] VITALS: BP 137/53
== END 2024-09-07 05:20 | disposition home or self-care (01) ==
LOC: ED 03:43
DX: E11.649 Type 2 diabetes mellitus with hypoglycemia without coma (principal); Z88.0 Allergy status to penicillin; Z88.5 Allergy status to narcotic agent; Z88.8 Allergy status to other drugs, medicaments and biological substances; Z90.710 Acquired absence of both cervix and uterus; Z90.89 Acquired absence of other organs; Z98.890 Other specified postprocedural states; Z95.5 Presence of coronary angioplasty implant and graft; Z72.0 Tobacco use; K21.9 Gastro-esophageal reflux disease without esophagitis; I10 Essential (primary) hypertension; J45.909 Unspecified asthma, uncomplicated; F41.9 Anxiety disorder, unspecified; E78.00 Pure hypercholesterolemia, unspecified; F32.A Depression, unspecified; T82.41XA Breakdown (mechanical) of vascular dialysis catheter, initial encounter; Y73.8 Miscellaneous gastroenterology and urology devices associated with adverse incidents, not elsewhere classified; Y92.89 Other specified places as the place of occurrence of the external cause

== ENCOUNTER → 2024-10-13 | Outpatient (CLI) | payer OTHER ==
[~2024-10-13] MED LIST changes: +IOHEXOL 300 MG/ML 100 ML VIAL IV ONE
== END | disposition home or self-care (01) ==
LOC: CT 13:00
PROVIDERS: ATTEND Internal Medicine Critical Care Medicine
DX: R91.1 Solitary pulmonary nodule (principal); J45.20 Mild intermittent asthma, uncomplicated; Z87.891 Personal history of nicotine dependence; Z68.31 Body mass index [BMI] 31.0-31.9, adult

== ENCOUNTER 2024-10-26 19:32 | Emergency (ER) | payer OTHER ==
[~2024-10-26] VITALS: Ht 165.1 cm; Wt 86.2 kg
[~2024-10-26 19:32] MED LIST changes: -IOHEXOL 300 MG/ML 100 ML VIAL IV ONE
[2024-10-26 19:41] VITALS: BP 148/56
== END 2024-10-26 20:53 | disposition home or self-care (01) ==
LOC: ED 19:32
DX: S63.501A Unspecified sprain of right wrist, initial encounter (principal); E11.9 Type 2 diabetes mellitus without complications; K21.9 Gastro-esophageal reflux disease without esophagitis; I10 Essential (primary) hypertension; J45.909 Unspecified asthma, uncomplicated; F41.9 Anxiety disorder, unspecified; E78.00 Pure hypercholesterolemia, unspecified; F32.A Depression, unspecified; Z88.0 Allergy status to penicillin; Z88.5 Allergy status to narcotic agent; Z88.8 Allergy status to other drugs, medicaments and biological substances; Z90.710 Acquired absence of both cervix and uterus; Z90.89 Acquired absence of other organs; Z95.5 Presence of coronary angioplasty implant and graft; Z98.890 Other specified postprocedural states; Z72.0 Tobacco use; W06.XXXA Fall from bed, initial encounter; Y93.89 Activity, other specified; Y92.89 Other specified places as the place of occurrence of the external cause; Y99.8 Other external cause status

== ENCOUNTER → 2025-02-19 | Outpatient (CLI) | payer OTHER ==
[2025-02-19 18:55] LABS: BASO # 0.1 10*3/uL (0.0-0.1); BASO % 0.6 % (0.0-1.0); EOS # 0.2 10*3/uL (0.0-0.4); EOS % 2.4 % (1.0-4.0); HEMATOCRIT 48.6 % (37.0-47.0); MEAN CELL VOLUME 90.5 fl (81.0-99.0); MEAN CORPUSCULAR HGB 29.1 pg (27.0-31.0); MEAN CORPUSCULAR HGB CONC 32.1 g/dl (33.0-37.0); MEAN PLATELET VOLUME 10.5 fl (9.6-12.3); MONO # 0.6 10*3/uL (0.1-1.0); MONO % 7.9 % (3.0-9.0); NEUT # 4.2 10*3/uL (2.3-7.9); NEUT % 53.8 % (47.0-73.0); PLATELET COUNT AUTOMATED 293 10*3/uL (130-400); RED BLOOD COUNT 5.37 10*6/uL (4.10-5.10); RED CELL DISTRI WIDTH 13.8 % (0-14.5); WHITE BLOOD COUNT 7.8 10*3/uL (4.8-10.8)
[2025-02-19 19:10] LABS: ALKALINE PHOSPHATASE 62 U/L (46-116); BUN 12 mg/dl (9-23); CHLORIDE 107 mmol/L (98-107); CHOLESTEROL 133 mg/dL (<200); LDL CHOLESTEROL 62 mg/dL (9-159); SGPT/ALT 19 U/L (5-49); TOTAL PROTEIN 7.2 gm/dL (6.0-8.0); TRIGLYCERIDES 170 mg/dl (<150)
== END | disposition home or self-care (01) ==
LOC: LAB 14:07
PROVIDERS: ATTEND Nurse Practitioner Family
DX: I10 Essential (primary) hypertension (principal); E11.42 Type 2 diabetes mellitus with diabetic polyneuropathy; J44.9 Chronic obstructive pulmonary disease, unspecified; E78.2 Mixed hyperlipidemia; K21.00 Gastro-esophageal reflux disease with esophagitis, without bleeding; E55.9 Vitamin D deficiency, unspecified; M81.0 Age-related osteoporosis without current pathological fracture

== ENCOUNTER 2025-04-13 07:36 | Emergency (ER) | payer OTHER ==
[~2025-04-13] VITALS: Ht 162.5 cm; Wt 81.6 kg
[2025-04-13 07:48] VITALS: BP 139/53
[2025-04-13] MEDS ORDERED: PREDNISONE20 M1 PO (08:15)
[2025-04-13] MEDS ORDERED: Bactroban Oint22 GM T (08:15)
[2025-04-13] MEDS ORDERED: VALTREX500 MG PO (08:15)
== END 2025-04-13 08:36 | disposition home or self-care (01) ==
LOC: ED 07:36
DX: B02.9 Zoster without complications (principal); I10 Essential (primary) hypertension; E11.9 Type 2 diabetes mellitus without complications; J45.909 Unspecified asthma, uncomplicated; K21.9 Gastro-esophageal reflux disease without esophagitis; F32.A Depression, unspecified; F41.9 Anxiety disorder, unspecified; E78.00 Pure hypercholesterolemia, unspecified; F17.200 Nicotine dependence, unspecified, uncomplicated; Z79.82 Long term (current) use of aspirin; Z79.4 Long term (current) use of insulin; Z79.899 Other long term (current) drug therapy; Z88.0 Allergy status to penicillin; Z88.1 Allergy status to other antibiotic agents; Z88.8 Allergy status to other drugs, medicaments and biological substances; Z90.710 Acquired absence of both cervix and uterus; Z90.89 Acquired absence of other organs; Z98.890 Other specified postprocedural states

== ENCOUNTER → 2025-06-07 | Outpatient (CLI) | payer OTHER ==
[~2025-06-07] MED LIST changes: +VALTREX500 MG PO
== END | disposition home or self-care (01) ==
LOC: LAB 13:24
PROVIDERS: ATTEND Psychiatry & Neurology Neurology
DX: R41.3 Other amnesia (principal)

== ENCOUNTER 2025-06-17 16:13 | Emergency (ER) | payer OTHER ==
[~2025-06-17] VITALS: Ht 162.5 cm; Wt 75.3 kg
[2025-06-17] MEDS ORDERED: Ondansetron Hydrochloride 4 MG/2 ML VIAL IV ONE (16:35)
[2025-06-17 16:51] LABS: BASO # 0.0 10*3/uL (0.0-0.1); BASO % 0.3 % (0.0-1.0); EOS # 0.1 10*3/uL (0.0-0.4); EOS % 1.0 % (1.0-4.0); MEAN CELL VOLUME 87.9 fl (81.0-99.0); MEAN CORPUSCULAR HGB 30.1 pg (27.0-31.0); MEAN PLATELET VOLUME 9.5 fl (9.6-12.3); MONO # 0.8 10*3/uL (0.1-1.0); MONO % 7.2 % (3.0-9.0); NEUT # 7.2 10*3/uL (2.3-7.9); NEUT % 62.7 % (47.0-73.0); NUCLEATED RED BLOOD CELL 0.0 % (0.0-0.0); NUCLEATED RED BLOOD CELL 0.0 10*3/uL (0.0-0.0); PLATELET COUNT AUTOMATED 284 10*3/uL (130-400); RED CELL DISTRI WIDTH 13.8 % (0-14.5)
[2025-06-17 17:15] LABS: BUN 16 mg/dl (9-23); CPK 90 U/L (34-171)
[2025-06-17 18:49] VITALS: BP 124/76
[2025-06-17] MEDS ORDERED: VALIUM5 MG PO (18:50)
== END 2025-06-17 18:50 | disposition home or self-care (01) ==
LOC: ED 16:13
PROVIDERS: Emergency Medicine
DX: F41.9 Anxiety disorder, unspecified (principal); E11.9 Type 2 diabetes mellitus without complications; K21.9 Gastro-esophageal reflux disease without esophagitis; I10 Essential (primary) hypertension; J45.909 Unspecified asthma, uncomplicated; E78.2 Mixed hyperlipidemia; F32.A Depression, unspecified; Z98.890 Other specified postprocedural states; Z96.653 Presence of artificial knee joint, bilateral; Z90.710 Acquired absence of both cervix and uterus; Z90.89 Acquired absence of other organs; Z88.0 Allergy status to penicillin; Z88.5 Allergy status to narcotic agent; Z88.8 Allergy status to other drugs, medicaments and biological substances

== ENCOUNTER 2025-06-19 21:08 | Emergency (ER) | payer OTHER ==
[~2025-06-19] VITALS: Ht 1645 cm; Wt 74.8 kg
[~2025-06-19 21:08] MED LIST changes: +VALIUM5 MG PO
[2025-06-19 21:26] VITALS: BP 138/62
[2025-06-19] MEDS ORDERED: Bacitracin Zinc 14 GM TUBE T ONE (23:05)
== END 2025-06-19 23:16 | disposition home or self-care (01) ==
LOC: ED 21:08
DX: S63.501A Unspecified sprain of right wrist, initial encounter (principal); S90.111A Contusion of right great toe without damage to nail, initial encounter; S80.212A Abrasion, left knee, initial encounter; I10 Essential (primary) hypertension; E11.9 Type 2 diabetes mellitus without complications; G89.29 Other chronic pain; F17.200 Nicotine dependence, unspecified, uncomplicated; Z88.0 Allergy status to penicillin; Z88.1 Allergy status to other antibiotic agents; Z88.8 Allergy status to other drugs, medicaments and biological substances; Z79.899 Other long term (current) drug therapy; Z79.82 Long term (current) use of aspirin; Z98.890 Other specified postprocedural states; Z90.711 Acquired absence of uterus with remaining cervical stump; Z90.89 Acquired absence of other organs; W18.09XA Striking against other object with subsequent fall, initial encounter; Y93.89 Activity, other specified; Y92.89 Other specified places as the place of occurrence of the external cause; Y99.8 Other external cause status

== ENCOUNTER → 2025-07-11 | Outpatient (CLI) | payer OTHER | END | disposition home or self-care (01) | LOC: CT 04-13 01:47 | PROVIDERS: ATTEND Internal Medicine Critical Care Medicine | DX: J98.4 Other disorders of lung (principal); I25.10 Atherosclerotic heart disease of native coronary artery without angina pectoris; M47.814 Spondylosis without myelopathy or radiculopathy, thoracic region ==